=== PATIENT | male | born 1950 | race Two or more races ===

== ENCOUNTER 2017-11-12 02:30 | Inpatient (IN) | payer MEDICARE, MEDICAID ==
[~2017-11-12] VITALS: Ht 162.6 cm; Wt 72.6 kg
--- NOTE | 2017-11-12 02:52 | NUR ---
Patient medically cleared by [facility] [place] reviewed and states patient is medically cleared for psychiatric admission. Pt. admitted to [facility], under care of Dr. Ahuja. Belongs List completed
[2017-11-12] MEDS ORDERED: CLON0.3T PO (03:04)
[2017-11-12] MEDS ORDERED: LORAZEPAM 0.5 MG TABLET PO PRN (03:30)
[2017-11-12] MEDS ORDERED: MAGNESIUM HYDROXIDE 30 ML LIQUID UDC PO PRN (03:30)
[2017-11-12] MEDS ORDERED: MAG HYDROX/AL HYDROX/SIMETH 30 ML LIQUID UDC PO PRN (03:30)
[2017-11-12] MEDS ORDERED: ACETAMINOPHEN 325 MG TABLET PO PRN (03:30)
[2017-11-12] MEDS ORDERED: DOCU-141 PO (03:36)
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
[2017-11-12 05:15] VITALS: BP 155/98
[2017-11-12] MEDS ORDERED: LORAZEPAM 0.5 MG TABLET ONE (06:03)
[2017-11-12 07:30] VITALS: BP 151/89
[2017-11-12] MEDS ORDERED: DOCUSATE SODIUM 100 MG CAPSULE PO PRN (11:15)
[2017-11-12] MEDS: hydrALAZINE HCL 25 MG TABLET PO PRN (12:37)
[2017-11-12] MEDS: AMLODIPINE 5 MG TABLET PO SCH ×2 (12:38→20:13)
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
[2017-11-12 15:17] VITALS: BP 164/98
--- NOTE | 2017-11-12 15:18 | NUR ---
Firearms Reporting: MASOUD submitted Mental Health Report to [employer] on 11/12.
[2017-11-12 15:19] VITALS: BP 169/98
--- NOTE | 2017-11-12 16:08 | NUR ---
Gps/Supervisor Frame Assembly- Patient anxious, wants his blood [pressure check from time to time , verbalized being worried r/t high b/p . Instructed to relax ,needed to calm down, ativan 0.5 mg 1 tab. given po., stayed in the group .
[2017-11-12] MEDS ORDERED: HYDROCODONE/APAP 5-325MG TABLET PO PRN (16:45)
[2017-11-12 17:44] VITALS: BP 159/92
[2017-11-12] MEDS: THIAMINE HCL 100 MG TABLET PO SCH (17:46)
[2017-11-12] MEDS: FOLIC ACID 1 MG TABLET PO SCH (17:46)
[2017-11-12] MEDS: MULTIVITAMINS,THERAPEUTIC TABLET PO SCH (17:46)
[2017-11-12] MEDS: CLONIDINE HCL 0.3 MG TABLET PO SCH ×2 (17:48→22:00)
[2017-11-12] MEDS: OLANZAPINE ZYDIS 5 MG TAB.RAPDIS PO SCH (20:13)
[2017-11-12 21:21] VITALS: BP 102/70
--- NOTE | 2017-11-12 22:00 | NUR ---
RECEIVED PATIENT IN HIS ROOM IN BED. HE WAS NOTED A/O X3 ABLE TO AMBULATE WITH STEADY GAIT AND ABLE TO MAKE HIS NEEDS KNOW. PATIENT NOTED WITH DEPRESSED MOOD, BLUNTED AFFECT. HE INITIALLY REFUSED HIS PSYCH MEDICATION, AFTER BEEN REDIRECTED, PT AGREED TO TAKE HIS PSYCH MED: ZYPREXA 2.5MG. NORVASC AND CATAPRES WERE HELD DUE TO DECREASED B/P 102/70MMHG. PATIENT DENIES SI AT THIS TIME. ABLE TO CFS. SAFETY WAS EMPHASIS. WILL CONTINUE TO MONITOR CLOSELY.
--- NOTE | 2017-11-13 00:58 | NUR ---
PATIENT WOKE UP REQUESTING SOMETHING TO EAT AND DRINK. WATER, DIET SUGAR FREE JUICE, AND A TURKEY SANDWICH WAS GIVEN. HE WAS ALSO NOTED MILDLY AGITATIVE. ATIVAN 0.5MG PO PRN WAS GIVEN. WILL CONTINUE TO MONITOR CLOSELY. Addendum: 11/13/17 at 0217 by ROBERTO PARRA RN wrong patient/wrong charting
[2017-11-13] MEDS: CLONIDINE HCL 0.3 MG TABLET PO SCH ×3 (06:38→21:47)
[2017-11-13 06:47] LABS: BASOPHILS % (AUTO) 0.4 % (0.0-2.0); EOSINOPHILS # (AUTO) 0.3 K/uL (0.0-0.7); EOSINOPHILS % (AUTO) 3.7 % (0.0-7.0); HEMATOCRIT 50.4 % (36.7-47.1); HEMOGLOBIN 17.1 g/dL (12.5-16.3); LYMPHOCYTES # (AUTO) 2.1 K/uL (20.0-40.0); LYMPHOCYTES % (AUTO) 29.4 % (20.5-51.5); MEAN CORPUSCULAR HEMOGLOBIN 31.7 uug (23.8-33.4); MEAN CORPUSCULAR HGB CONC 34 g/dL (32.5-36.3); MEAN CORPUSCULAR VOLUME 93.2 fL (73.0-96.2); MONOCYTES # (AUTO) 0.8 K/uL (2.0-10.0); MONOCYTES % (AUTO) 10.5 % (0.0-11.0); NEUTROPHILS # (AUTO) 4.1 K/uL (1.8-8.9); PLATELET COUNT (AUTO) 247 K/uL (152-348); RED BLOOD CELL COUNT(AUTO) 5.41 MIL/uL (4.06-5.63); WHITE BLOOD COUNT (AUTO) 7.3 K/uL (3.6-10.2)
[2017-11-13 06:57] LABS: BILIRUBIN,TOTAL 0.7 mg/dL (0.2-1.0); MAGNESIUM 2.3 mg/dL (1.8-2.4); PHOSPHOROUS 3.8 mg/dL (2.5-4.9); POTASSIUM 4.4 mmol/L (3.5-5.1); TOTAL PROTEIN, SERUM 7.8 g/dL (6.4-8.2)
[2017-11-13 07:10] LABS: THYROID STIMULATING HORMONE 1.729 mIU/mL (0.358-3.740)
[2017-11-13] MEDS: MULTIVITAMINS,THERAPEUTIC TABLET PO SCH (08:13)
[2017-11-13] MEDS: FOLIC ACID 1 MG TABLET PO SCH (08:13)
[2017-11-13] MEDS: AMLODIPINE 5 MG TABLET PO SCH ×2 (08:13→20:05)
[2017-11-13] MEDS: THIAMINE HCL 100 MG TABLET PO SCH (08:14)
[2017-11-13] MEDS: NICOTINE 14 MG/24HR PATCH TD SCH (08:20)
[2017-11-13 08:23] VITALS: BP 134/89
--- NOTE | 2017-11-13 10:22 | NUR ---
Initial DC Plan: Patient currently lives home alone [[address] [place] [address];[phone]] and would like to return there upon discharge. SW will follow up with MD, patient, and patient's ex- Hui [[phone]] to discuss most appropriate discharge plans. SW will form a safe and proper discharge.
--- NOTE | 2017-11-13 12:49 | NUR ---
DC Note: SW attempted to call patient's ex- Elisha [[phone]] to discuss discharge plans, however phone did not ring and there was no voicemail. SW will attempt to follow up.
[2017-11-13] MEDS ORDERED: INFLUENZA VACCINE 2017-2018 0.5 ML DISP.SYRIN IM ONE (14:00)
[2017-11-13 15:13] VITALS: BP 134/77
[2017-11-13] MEDS: ATORVASTATIN 10 MG TABLET PO SCH (20:03)
[2017-11-13] MEDS: OLANZAPINE ZYDIS 5 MG TAB.RAPDIS PO SCH (20:13)
[2017-11-13 20:21] VITALS: BP 156/73
[2017-11-13] MEDS: TEMAZEPAM 7.5 MG CAPSULE PO PRN (21:36)
[2017-11-14] MEDS: CLONIDINE HCL 0.3 MG TABLET PO SCH ×3 (06:00→22:00)
--- NOTE | 2017-11-14 06:44 | NUR ---
GPS: REMAIN CALM AND COOPERATIVE WITH MEDICATIONS AND CARE. SHOWERED THIS MORNING. SLEPT 8 HRS THROUGH THE NIGHT AFTER RESTORIL 7.5 MG PO GIVEN. RESTING IN HIS ROOM COMFORTABLY.CONTINUE PLAN OF CARE.
--- NOTE | 2017-11-14 07:40 | NUR ---
RECEIVED PATIENT IN HIS ROOM IN BED. HE WAS NOTED A/O X3 ABLE TO AMBULATE WITH STEADY GAIT AND ABLE TO MAKE HIS NEEDS KNOW. . SAFETY WAS EMPHASIS. WILL CONTINUE TO MONITOR CLOSELY.
[2017-11-14] MEDS: THIAMINE HCL 100 MG TABLET PO SCH (08:14)
[2017-11-14] MEDS: FOLIC ACID 1 MG TABLET PO SCH (08:14)
[2017-11-14] MEDS: MULTIVITAMINS,THERAPEUTIC TABLET PO SCH (08:14)
[2017-11-14] MEDS: NICOTINE 14 MG/24HR PATCH TD SCH (08:14)
[2017-11-14] MEDS: AMLODIPINE 5 MG TABLET PO SCH ×2 (08:15→20:41)
[2017-11-14 08:18] VITALS: BP 125/60
[2017-11-14 15:22] VITALS: BP 126/68
[2017-11-14 20:00] VITALS: BP 121/78
[2017-11-14] MEDS: ATORVASTATIN 10 MG TABLET PO SCH (20:40)
[2017-11-14] MEDS: OLANZAPINE ZYDIS 5 MG TAB.RAPDIS PO SCH (20:48)
[2017-11-14] MEDS: TEMAZEPAM 7.5 MG CAPSULE PO PRN (21:32)
--- NOTE | 2017-11-14 21:37 | NUR ---
GPS: PATIENT C/O INSOMNIA. RESTORIL 7.5 MG PO GIVEN FOR SLEEP.
--- NOTE | 2017-11-14 22:37 | NUR ---
GPS: PATIENT SLEEPING. PRN EFFECTIVE FOR SLEEP.
[2017-11-15] MEDS: hydrALAZINE HCL 25 MG TABLET PO PRN (00:27)
[2017-11-15 00:30] VITALS: BP 161/90
[2017-11-15 01:27] VITALS: BP 127/80
[2017-11-15] MEDS: CLONIDINE HCL 0.3 MG TABLET PO SCH ×3 (06:05→22:02)
--- NOTE | 2017-11-15 06:23 | NUR ---
GPS: REMAIN CALM AND COOPERATIVE WITH MEDICATIONS AND CARE. B/P WAS 161/90 LAST NIGHT. PRN HYDRALAZINE 25 MG PO GIVEN AND EFFECTIVE.. SLEPT 5 HRS THROUGH THE NIGHT AFTER RESTORIL 7.5 MG PO GIVEN. RESTING IN HIS ROOM COMFORTABLY.CONTINUE PLAN OF CARE.
[2017-11-15 07:30] VITALS: BP 115/76
[2017-11-15] MEDS: FOLIC ACID 1 MG TABLET PO SCH (09:21)
[2017-11-15] MEDS: THIAMINE HCL 100 MG TABLET PO SCH (09:21)
[2017-11-15] MEDS: AMLODIPINE 5 MG TABLET PO SCH ×2 (09:22→21:50)
[2017-11-15] MEDS: MULTIVITAMINS,THERAPEUTIC TABLET PO SCH (09:26)
[2017-11-15] MEDS: NICOTINE 14 MG/24HR PATCH TD SCH (09:49)
[2017-11-15] MEDS: ARIPIPRAZOLE 5 MG TABLET PO SCH (12:51)
[2017-11-15 16:28] VITALS: BP 142/90
[2017-11-15 20:29] VITALS: BP 114/75
[2017-11-15] MEDS: TEMAZEPAM 7.5 MG CAPSULE PO PRN (21:49)
[2017-11-15] MEDS: ATORVASTATIN 10 MG TABLET PO SCH (21:49)
[2017-11-15 22:00] VITALS: BP 137/82
[2017-11-16 05:01] VITALS: BP 115/78
[2017-11-16] MEDS: CLONIDINE HCL 0.3 MG TABLET PO SCH ×3 (05:35→13:16)
[2017-11-16 07:30] VITALS: BP 132/75
[2017-11-16 07:42] LABS: BASOPHILS % (AUTO) 0.8 % (0.0-2.0); EOSINOPHILS # (AUTO) 0.2 K/uL (0.0-0.7); EOSINOPHILS % (AUTO) 3.1 % (0.0-7.0); HEMATOCRIT 46.7 % (36.7-47.1); HEMOGLOBIN 15.8 g/dL (12.5-16.3); LYMPHOCYTES # (AUTO) 1.7 K/uL (20.0-40.0); LYMPHOCYTES % (AUTO) 28.9 % (20.5-51.5); MEAN CORPUSCULAR HEMOGLOBIN 31.3 uug (23.8-33.4); MEAN CORPUSCULAR HGB CONC 34 g/dL (32.5-36.3); MEAN CORPUSCULAR VOLUME 92.3 fL (73.0-96.2); MONOCYTES # (AUTO) 0.7 K/uL (2.0-10.0); MONOCYTES % (AUTO) 11.5 % (0.0-11.0); NEUTROPHILS # (AUTO) 3.2 K/uL (1.8-8.9); NEUTROPHILS % (AUTO) 55.7 % (38.5-71.5); PLATELET COUNT (AUTO) 231 K/uL (152-348); RED BLOOD CELL COUNT(AUTO) 5.06 MIL/uL (4.06-5.63); WHITE BLOOD COUNT (AUTO) 5.8 K/uL (3.6-10.2)
[2017-11-16 07:45] LABS: BILIRUBIN,TOTAL 0.6 mg/dL (0.2-1.0); MAGNESIUM 2.1 mg/dL (1.8-2.4); POTASSIUM 4.4 mmol/L (3.5-5.1); TOTAL PROTEIN, SERUM 7.6 g/dL (6.4-8.2)
[2017-11-16] MEDS: FOLIC ACID 1 MG TABLET PO SCH (08:05)
[2017-11-16] MEDS: THIAMINE HCL 100 MG TABLET PO SCH (08:05)
[2017-11-16] MEDS: ARIPIPRAZOLE 5 MG TABLET PO SCH (08:05)
[2017-11-16] MEDS: MULTIVITAMINS,THERAPEUTIC TABLET PO SCH (08:06)
[2017-11-16] MEDS: AMLODIPINE 5 MG TABLET PO SCH (08:06)
[2017-11-16] MEDS: NICOTINE 14 MG/24HR PATCH TD SCH (08:06)
--- NOTE | 2017-11-16 09:00 | NUR ---
PT APPEARS TO BE VERY AGITATED AND ANXIOUS ABOUT POSSIBLE RELEASE TODAY. HAS BEEN AT THE NURSES STATION MULTIPLE TIMES IN A SHORT AMOUNT OF TIME, DEMANDING INFORMATION OF RELEASE AND TO OBTAIN HIS BELONGINGS. EXPLAINED THAT SURFACE SUPPLY BREATHING APPARATUS AND PSYCHIATRIST HASNT GIVEN AN OFFICIAL ORDER YET, BUT WILL NOTIFY SOON DISCHARGE DETAILS BECOME AVAILABLE. PT EASILY AGITATED AND RESTLESS AND WILL NOT ACCEPT RESPONSES OR ANSWERS AT THIS TIME.
--- NOTE | 2017-11-16 11:42 | NUR ---
DC Note: Patient will be discharged home [[address]; [phone]] via private transportation. SW spoke with patient's ex- Hui [[phone]] who stated she will forklift picker patient between 2pm and 3pm. Patient will follow up with his transport engineer Dr. Eron Garcia [[address] [place] [address]; ]. Patient has an appointment scheduled with psychiatrist Dr. Odalys Tsang [[address] [place] [address]; [phone]] on 11/24/17 at 11am. Patient was provided additional mental health referrals to [facility] and [facility] . Patient was given a brief substance abuse intervention. Patient will discuss smoking cessation and address substance abuse dependency at his psychiatry appointment. Patient was also provided smoking cessation referrals to [employer] 800-LUNGUSA and [employer] [phone].
[2017-11-16 13:16] VITALS: BP 151/91
--- NOTE | 2017-11-16 15:17 | NUR ---
Patient discharged home via private transportation. SW spoke with patient's ex- Hui . Patient will follow up with his dough maker Dr. Eron Garcia . Patient has an appointment scheduled with psychiatrist Dr. Odalys Tsang [[address] [place] [address]; [phone]] on 11/24/17 at 11am. Patient was provided additional mental health referrals to [facility] and [facility].discharge instraction given to pt.
== END 2017-11-16 15:15 | disposition home or self-care (01) | DRG 885 ==
LOC: ER 02:36 → GPS 02:48
PROVIDERS: ADMIT Psychiatry & Neurology Psychosomatic Medicine; ATTEND Internal Medicine
DX: F25.0 Schizoaffective disorder, bipolar type (principal); R45.851 Suicidal ideations; D75.1 Secondary polycythemia; Z72.0 Tobacco use; G89.29 Other chronic pain; M54.9 Dorsalgia, unspecified; E78.5 Hyperlipidemia, unspecified; I10 Essential (primary) hypertension; F12.90 Cannabis use, unspecified, uncomplicated; F10.10 Alcohol abuse, uncomplicated; Z86.73 Personal history of transient ischemic attack (TIA), and cerebral infarction without residual deficits; Z98.890 Other specified postprocedural states
CPT/HCPCS: 36415; 83735; 84100; 84443; 85025; A4663